=== PATIENT | male | born 1995 | race Caucasian/White ===

== ENCOUNTER → 2020-04-11 | Outpatient (CLI) | payer OTHER ==
--- NOTE | 2020-04-12 03:02 | REP ---
Clinical: Trauma. Technique: AP, lateral, bilateral oblique views left wrist . Findings: The carpal bones, surrounding osseous structures, soft tissues, and joint spaces are normal. There is no evidence for acute fracture or dislocation. No subcutaneous emphysema or radiodense foreign body. Impression: Normal wrist series. No acute fracture or dislocation. If the patient remains symptomatic consider reevaluation in 3-5 days. Electronically Signed by Sam Sierra MD 04/12/2020 02:53 A
--- NOTE | 2020-04-12 03:09 | REP ---
Clinical: Trauma. Technique: Frontal view of the chest with four views of the left hemithorax. Findings: Frontal view of the chest demonstrates no acute cardiopulmonary process. Multiple views of the left hemithorax demonstrates no obvious acute rib fracture or pathology. Impression: Normal left rib series. No obvious acute rib fracture or pathology identified. Electronically Signed by Sam Sierra MD 04/12/2020 03:00 A
--- NOTE | 2020-04-12 03:11 | REP ---
Clinical: Left shoulder trauma . Technique: Internal rotation, external rotation, and Y view. Findings: No acute fracture or dislocation. The acromioclavicular and glenohumeral joints are intact. No periarticular calcifications or degenerative changes are appreciated. Sub acromial space is normal. Surrounding soft tissues are unremarkable. Impression: Normal left shoulder radiographs. Electronically Signed by Sam Sierra MD 04/12/2020 03:01 A
--- NOTE | 2020-04-12 03:12 | REP ---
Clinical: Trauma . Technique: AP, lateral, bilateral oblique views of the left elbow. Findings: No acute fracture or dislocation is appreciated. Joint spaces and surrounding soft tissues appear normal. Lateral view demonstrates normal positioning to the anterior and posterior fat pads without evidence for effusion/hemarthrosis. No subcutaneous emphysema or foreign body identified. Impression: Normal left elbow radiographs. Electronically Signed by Sam Sierra MD 04/12/2020 03:03 A
== END ==
LOC: M ADAMS 09:15
PROVIDERS: ATTEND Physician Assistant
DX: S20.212A Contusion of left front wall of thorax, initial encounter (principal); S40.022A Contusion of left upper arm, initial encounter; M25.532 Pain in left wrist; X58.XXXA Exposure to other specified factors, initial encounter; Y92.9 Unspecified place or not applicable; S40.812A Abrasion of left upper arm, initial encounter